=== PATIENT | female | born 2000 | race Asian ===

== ENCOUNTER 2019-02-24 09:14 | Emergency (ER) | payer OTHER ==
--- NOTE | 2019-02-24 09:34 | EDM.PDOC ---
ED HPI GENERAL MEDICAL PROBLEM - General Chief Complaint: Lower Extremity Injury/Pain Stated Complaint: RT FOOT INJURY MULTIPLE TOES Time Seen by Provider: 02/24/19 09:29 Source of Information: Reports: Patient History Limitations: Reports: No Limitations - History of Present Illness INITIAL COMMENTS - FREE TEXT/NARRATIVE: 18-year-old female presents to the ED with a work-related injury. She states a heavy trailer hitch fell on her right foot injuring primarily the great toe but all of her toes hurt. The foot was not pinned to the ground underneath the heavy weight or crush type injury. She's been able to weight-bear on her heel only. It is an open wound on the lateral aspect of the great toe which is actively bleeding. Her last tetanus toxoid is felt to be of to date. Injury occurred about 0845 hrs. this morning. Only injuries to the right foot. Onset: Today Onset Date: 02/24/19 Onset Time: 08:45 Duration: Minutes: Location: Reports: Lower Extremity, Right Quality: Reports: Ache (Right distal foot injuring primarily the great toe but all of the toes hurt.), Throbbing Severity: Moderate Improves with: Reports: Rest Worsens with: Reports: Movement Context: Reports: Trauma (Blunt force trauma with a heavy 100 pound trailer hitch falling on her right foot at work this morning.). 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 (see below) (None.) Right Foot Pain Score (Numeric/FACES): 8 - Related Data Allergies Allergy/AdvReac Type Severity Reaction Status Date / Time No Known Allergies Allergy Verified 02/24/19 09:32 Home Meds: Home Meds Doxycycline [Vibramycin] 100 mg PO BID #20 cap 02/24/19 [Rx] oxyCODONE HCl/Acetaminophen [Percocet 5-325 mg Tablet] 1 - 2 each PO Q4H PRN # 16 tablet 02/24/19 [Rx] Social & Family History - Living Situation & Occupation Living situation: Reports: Single Occupation: Employed Review of Systems - Review of Systems Review Of Systems: See Below Constitutional: Reports: No Symptoms Eyes: Reports: No Symptoms Ears: Reports: No Symptoms Nose: Reports: No Symptoms Mouth/Throat: Reports: No Symptoms Respiratory: Reports: No Symptoms Cardiovascular: Reports: No Symptoms GI/Abdominal: Reports: No Symptoms Genitourinary: Reports: No Symptoms Musculoskeletal: Reports: Foot Pain (Acute injury to the right distal foot this morning from blunt force trauma with a heavy weight falling on top of her foot and workplace.) Skin: Reports: No Symptoms Neurological: Reports: No Symptoms Psychiatric: Reports: No Symptoms ED EXAM, GENERAL - Physical Exam Exam: See Below Exam Limited By: No Limitations General Appearance: Alert, WD/WN, Moderate Distress (He is crying due to pain.) Eye Exam: Bilateral Eye: Normal Inspection Peripheral Pulses: 3+: Posterior Tibial (L), Posterior Tibial (R), Dorsalis Pedis (L), Dorsalis Pedis (R) Extremities: Other (Examination essentially confined to the right forefoot. Her heel and ankle are intact. There is no malalignment or deformity of the toes. She has a wound to the lateral aspect dorsally on the right great toe. Toenail is intact. Patient be laceration at the base of the nail that travels into the webspace between the first and second toes. No ecchymoses on the plantar surface of the foot at this time.) Neurological: Alert, Oriented, CN II-XII Intact, Normal Cognition Psychiatric: Tearful Skin Exam: Warm, Dry, Intact, Normal Color ED TRAUMA EXTREMITY PROCEDURES - Splinting Right Lower Extremity Splint Site: Below knee Ortho-Glass posterior splint--right side Pre-Procedure NV Status: Normal Post-Procedure NV Status: Normal Splint Material: Fiberglass Splint Design: Posterior Applied & Form Fitted By: Provider Provider Post-Splint Application NV Check: NV Status Normal Complications: No Course - Vital Signs Last Recorded V/S: Last Vital Signs Temp 36.5 C 02/24/19 09:27 Pulse 76 02/24/19 09:27 Resp 16 02/24/19 09:27 BP 121/91 H 02/24/19 09:27 Pulse Ox 100 02/24/19 09:27 - Orders/Labs/Meds Orders: Active Orders 24 hr Category Date Time Status Foot Comp Min 3V Rt [CR] Stat Exams 02/24/19 09:29 Taken Acetaminophen/oxyCODONE [Percocet 325-5 MG] Med 02/24/19 10:57 Once 1 tab PO ONETIME ONE Ibuprofen [Motrin] Med 02/24/19 10:57 Once 600 mg PO ONETIME ONE - Radiology Interpretation Free Text/Narrative:: 18-year-old female presents to the ED with a crush type injury to the dorsal aspect of her right foot this morning. This is work-related injury occurring about 0845 hrs. this morning. She reports a heavy trailer hitch weighing over 100 pounds fell on her right foot but did not penetrate to the ground. She has suffered a puncture wound/laceration to the lateral aspect of the great toe toe dorsally with active bleeding. Will be explored to see how extensive the laceration is. Quite possibly she has fractured the great toe. X-rays of the foot 3 view to be obtained. Tetanus toxoid is up-to-date. - Re-Assessments/Exams Free Text/Narrative Re-Assessment/Exam: 02/24/19 10:05: X-rays of the right foot reveal a corner fracture lateral aspect of the distal phalanx. Bone position is satisfactory. When the wound was cleaned up there is a superficial last what duration overlying the area of injury. Nothing that needs to be sutured. Wound was cleansed and antibiotic ointment placed and a Band-Aid. I'm going to place her in a posterior Ortho- Glass splint to be nonweightbearing crutch walking for the next 2 weeks until follow-up with orthopedic surgery. After this she can likely get around with a Cam Walker/walking boot Will be discharged on Percocet tablets for pain 5/325 mg 15 tablets. Aleve 2 tablets every 8 hours to relieve pain and inflammation. Vice follow-up with Dr. Carranza orthopedic surgeon in 10 days' time. 02/24/19 10:58 Ortho-Glass posterior slab splint has been placed. Patient will be discharged with crutches. Departure - Departure Time of Disposition: 10:59 Disposition: Home, Self-Care 01 Condition: Fair Clinical Impression: Closed fracture of phalanx of foot Fracture of great toe of right foot Qualifiers: Encounter type: initial encounter Fracture type: closed Phalanx: distal Fracture alignment: nondisplaced Qualified Code(s): S92.424A - Nondisplaced fracture of distal phalanx of right great toe, initial encounter for closed fracture Superficial laceration of right foot Qualifiers: Encounter type: initial encounter Qualified Code(s): S91.311A - Laceration without foreign body, right foot, initial encounter - Discharge Information *PRESCRIPTION DRUG MONITORING PROGRAM REVIEWED*: Not Applicable *COPY OF PRESCRIPTION DRUG MONITORING REPORT IN PATIENT ALLIE: Not Applicable Prescriptions: Doxycycline [Vibramycin] 100 mg PO BID #20 cap oxyCODONE HCl/Acetaminophen [Percocet 5-325 mg Tablet] 1 - 2 each PO Q4H PRN # 16 tablet PRN Reason: pain relief. Instructions: Toe Fracture, [id number], Pain Medicine Instructions, Easy-to- Read, Cast or Splint Care, Adult Referrals: PCP,Unknown [Primary Care Provider] - Forms: ED Department Discharge, ED Return to Work/School Form Additional Instructions: Evaluation the emergency room today in regards to a crush type injury that occurred in the workplace this morning to your right distal foot. There is evidence of a superficial laceration across the distal anterior interphalangeal joint of the great toe that does not require sutures but does require daily cleanse with soap and water and then application of antibiotic ointment such as Polysporin or bacitracin and covered keep clean. X-rays of the foot reveal a corner fracture of the distal phalanx right underneath where the laceration is. Therefore the toe is fractured and this will limit her mobility for the next 4 weeks and possibly up to 6 weeks. You were placed in a Ortho-Glass splint to protect the area for the next 2 weeks. After this you can probably get away with a walking boot. Just follow-up with orthopedic surgeon in 10-12 days time. Elevate the foot is much as possible for the next 3 days. Nonweightbearing crutch walking. Suggest either Motrin 600 mg every 6 hours or Aleve 2 tablets every 8 hours to relieve pain and inflammation. Stronger pain medication Percocet tabs 5/325 mg one or 2 tablets every 4-6 hours as needed for pain not relieved by Motrin or Aleve alone. They certainly may be needed for the next 2- 3 days and then usually the pain subsides substantially. You will need to take antibiotic ducts likely 100 mg twice daily for the next 10 days to prevent secondary wound infection Suggest making a follow-up appointment with orthopedic surgeon Dr. Carranza in 10-12 days' time. Please phone his office at [phone] on Tuesday morning to arrange an appointment for follow-up. He will monitor you and make sure the fracture heals appropriately without any infection occurring. - My Orders Last 24 Hours: My Active Orders 02/24/19 09:29 Foot Comp Min 3V Rt [CR] Stat 02/24/19 10:57 Acetaminophen/oxyCODONE [Percocet 325-5 MG] 1 tab PO ONETIME ONE Ibuprofen [Motrin] 600 mg PO ONETIME ONE - Assessment/Plan Last 24 Hours: My Active Orders 02/24/19 09:29 Foot Comp Min 3V Rt [CR] Stat 02/24/19 10:57 Acetaminophen/oxyCODONE [Percocet 325-5 MG] 1 tab PO ONETIME ONE Ibuprofen [Motrin] 600 mg PO ONETIME ONE
[2019-02-24] MEDS ORDERED: Acetaminophen/oxyCODONE 325-5 MG Tab PO ONE (10:57)
[2019-02-24] MEDS ORDERED: Ibuprofen 600 MG Tab PO ONE (10:57)
--- NOTE | 2019-02-26 07:33 | CR ---
Right foot: Four views of the right foot were obtained. Comparison: No prior foot exam. Small corner fracture is seen within the distal phalanx of the first toe which is most likely old. There is a lucent line within the base of the tuft of the first toe possibly due to an acute fracture. No additional abnormality is seen. Impression: 1. Possible old and acute fracture within the distal first toe as described above. 2. Right foot exam is otherwise unremarkable. Diagnostic code #3
== END 2019-02-24 11:48 | disposition home or self-care (01) ==
LOC: JD.ED 09:14
DX: S92.424A Nondisplaced fracture of distal phalanx of right great toe, initial encounter for closed fracture (principal); S91.311A Laceration without foreign body, right foot, initial encounter; W20.8XXA Other cause of strike by thrown, projected or falling object, initial encounter; Y99.0 Civilian activity done for income or pay
CPT/HCPCS: 29515; 73630; 99283; A9270